=== PATIENT | male | born 1985 | race Caucasian/White ===

== ENCOUNTER 2023-11-16 16:45 | Emergency (ER) | payer OTHER ==
[~2023-11-16] VITALS: Ht 175.3 cm; Wt 72.5 kg
[~2023-11-16 16:45] MED LIST: BACTRIM DS1 TAB PO; FLEXERIL OR; LORTAB5 PO; PENICILLN VK500 M1 OR; ULTRAM50 M1 PO
[2023-11-16 17:16] VITALS: BP 120/85
[2023-11-16] MEDS ORDERED: LIDOCAINE W/ EPINEPHRINE 10 MG/ML INJ STI STA (17:17)
[2023-11-16] MEDS ORDERED: KURIC21 EX (17:49)
[2023-11-16] MEDS ORDERED: BACTRIM DS1 TAB PO (17:51)
== END 2023-11-16 18:13 | disposition home or self-care (01) ==
LOC: ED 16:45
DX: S50.01XA Contusion of right elbow, initial encounter (principal); F17.200 Nicotine dependence, unspecified, uncomplicated; V89.2XXA Person injured in unspecified motor-vehicle accident, traffic, initial encounter

== ENCOUNTER 2023-11-20 14:25 | Emergency (ER) | payer OTHER ==
[~2023-11-20] VITALS: Ht 175.3 cm; Wt 86.1 kg
[~2023-11-20 14:25] MED LIST changes: +KURIC21 EX
[2023-11-20] MEDS ORDERED: ONDANSETRON HCl 4 MG/2 ML SDV IV ONE (14:40)
[2023-11-20] MEDS ORDERED: SODIUM CHLORIDE 0.9% 1,000 ML IV ONE ×3 (14:40→16:30)
[2023-11-20 15:03] LABS: BASO% 0.1 % (0-3); EOS% 0.1 % (0-8); HEMATOCRIT 41.7 % (39.0-50.0); HEMOGLOBIN 14.3 g/dl (14.0-18.0); IMMATURE GRANULOCYTES 0.2 % (0.0-5.0); MEAN CORPUSCULAR HGB 29.5 pG CALC (26.0-32.0); MEAN CORPUSCULAR HGB CONC 34.3 g/dL CAL (32.0-36.0); MONO% 4.9 % (2-13); NEUT# 11.47 thou/uL (1.82-7.42); NEUT% 78.7 % (42-76); RED BLOOD COUNT 4.85 mill/uL (4.70-6.10); RED CELL DISTRI WIDTH 12.6 % (11.5-15.5)
[2023-11-20 15:16] LABS: ALBUMIN 5.4 g/dL (3.2-5.0); BILIRUBIN, TOTAL 0.8 mg/dL (0.2-1.3); CREATININE 2.3 mg/dL (0.7-1.3); POTASSIUM 4.9 mmol/l (3.5-5.1); TOTAL PROTEIN 9.4 g/dL (6.3-8.2)
[2023-11-20 16:03] LABS: URINE BLOOD DIPSTICK Negative (NEGATIVE); URINE GLUCOSE - DIPSTICK Negative (NEGATIVE); URINE KETONE Negative (NEGATIVE); URINE LEUK ESTERASE Negative (NEGATIVE); URINE NITRITE - DIPSTICK Negative (Negative); URINE PH 5.5 (4.5-8.0); URINE PROTEIN - DIPSTICK 30 mg/dL (NEG-TRACE); URINE SPECIFIC GRAVITY >=1.030; URINE UROBILINOGEN - DIPSTICK 0.2 E.U./dL (0.2)
[2023-11-20 16:05] LABS: URINE COLOR Yellow
[2023-11-20 16:07] LABS: URINE RBC 0-2 RBC/hpf (0-5); URINE WBC 0-2 WBC/hpf (0-5)
[2023-11-20 17:30] LABS: CREATININE 1.6 mg/dL (0.7-1.3); POTASSIUM 4.1 mmol/l (3.5-5.1)
[2023-11-20] MEDS ORDERED: ZOFRAN4 MG/TAB PO (18:12)
[2023-11-20 18:55] VITALS: BP 118/68
== END 2023-11-20 19:05 | disposition home or self-care (01) ==
LOC: ED 14:25
PROVIDERS: Nurse Practitioner
DX: R11.2 Nausea with vomiting, unspecified (principal); E86.0 Dehydration; F17.200 Nicotine dependence, unspecified, uncomplicated; Z98.890 Other specified postprocedural states; Z20.822 Contact with and (suspected) exposure to COVID-19